=== PATIENT | female | born 1990 | race Caucasian/White ===

== ENCOUNTER 2021-05-30 08:15 | Outpatient (REF) | payer BC, SELFPAY ==
[2021-05-30 08:42] LABS: MANUAL DIFF FLAG NO
[2021-05-30 09:52] LABS: Basophils Absolute Auto 0.1 X10*3/uL (0.0-0.2); Basophils Percent Auto 0.8 % (0-2); Eosinophils Absolute Auto 0.4 X10*3/uL (0.0-0.4); Eosinophils Percent Auto 6.9 % (0-4); Hematocrit 37.4 % (37.0-47.0); Hemoglobin 12.3 g/dl (12.0-16.0); Imm Gran Abs Auto 0.02 X10*3/uL (0.00-0.03); Imm Gran Pct Auto 0.3 % (0.0-0.4); Lymphocytes Absolute Auto 2.9 X10*3/uL (1.2-4.9); Lymphocytes Percent Auto 45.8 % (20-40); Mean Corpuscular HGB Conc 32.9 g/dl (31.0-35.0); Mean Corpuscular Hemoglobin 28.9 pg (27.0-33.0); Monocytes Absolute Auto 0.4 X10*3/uL (0.1-1.2); Monocytes Percent Auto 5.6 % (2-11); Neutrophils Absolute Auto 2.6 x10*3/uL (2.0-8.3); Neutrophils Percent Auto 40.6 % (45-73); Platelet Count 284 X10*3/uL (160-400); Red Blood Count 4.25 X10*6/uL (4.20-5.50); Red Cell Distribution Width 12.6 % (11.0-16.0); White Blood Count 6.4 X10*3/uL (4.8-10.8)
[2021-05-30 10:15] LABS: Alanine Aminotransferase 13 U/L (0-31); Albumin Level 4.1 g/dL (3.5-5.0); Alkaline Phosphatase 48 U/L (39-117); Anion Gap 11 (12-20); Aspartate Amino Transferase 19 U/L (5-31); Bilirubin Total 0.4 mg/dL (0.0-1.0); Blood Urea Nitrogen 10 mg/dL (9-16); Calcium 9.3 mg/dL (8.4-10.2); Carbon Dioxide 27 mmol/L (22-29); Chloride 106 mmol/L (96-108); Cholesterol 181 mg/dL; Estimated Glomerular Filt Rate > 60; Glucose Fasting 82 mg/dL (60-99); HDL Cholesterol 66 mg/dL; LDL Cholesterol Calculated 104 mg/dl; Potassium 4.6 mmol/L (3.3-5.1); Sodium 139 mmol/L (135-145); Triglycerides 59 mg/dL
[2021-05-30 10:18] LABS: Estimated Average Glucose 100 mg/dL; Hemoglobin A1c % 5.1 %
[2021-05-30 10:42] LABS: TSH reflex Free T4 1.48 uIU/mL (0.32-4.0)
[2021-05-30 10:50] LABS: Folate 10.8 ng/mL (> or = 4.0); Vitamin B12 566 pg/mL (200-900)
[2021-06-01 01:31] LABS: Prolactin 6.9 ng/mL
[2021-06-04 12:12] LABS: Vitamin D 25-OH, D2 <4 ng/mL; Vitamin D 25-OH, D3 31 ng/mL; Vitamin D 25-OH, Total 31 ng/mL (30-100)
== END 2021-05-30 08:16 | disposition home or self-care (01) ==
LOC: HO.LAB 08:15
PROVIDERS: PCP Nurse Practitioner Acute Care; Visit Provider Nurse Practitioner Acute Care
DX: D49.7 Neoplasm of unspecified behavior of endocrine glands and other parts of nervous system (principal)
CPT/HCPCS: 36415; 80053; 80061; 82306; 82607; 82746; 83036; 84146; 84443; 85025

== ENCOUNTER 2021-06-06 14:27 | Outpatient (REF) | payer BC, SELFPAY ==
--- NOTE | ~2021-06-06 | XR_ITS ---
EXAMINATION: XR CHEST CLINICAL INFORMATION: Cough. COMPARISON: None TECHNIQUE: Frontal view of the chest was obtained. FINDINGS: No significant abnormality is noted involving the heart, lungs, mediastinum, bony thorax or soft tissues. XR/XR chest 1V IMPRESSION: Unremarkable chest examination.
== END 2021-06-06 14:28 | disposition home or self-care (01) ==
LOC: HO.XRAY 14:27
PROVIDERS: PCP Nurse Practitioner Acute Care; Visit Provider Nurse Practitioner Acute Care
DX: R05.8 Other specified cough (principal)
CPT/HCPCS: 71045

== ENCOUNTER 2021-08-14 08:27 | Outpatient (REF) | payer BC, SELFPAY ==
[2021-08-14 15:19] LABS: CT PCR NOT DETECTED (Not Detect.); NG PCR NOT DETECTED (Not Detect.)
[2021-08-15 11:12] LABS: BV Int Neg Control Negative (Negative); BV Int Pos Control Positive (Positive)
== END 2021-08-14 08:28 | disposition home or self-care (01) ==
LOC: HO.LAB 08:27
PROVIDERS: PCP Nurse Practitioner Acute Care; Visit Provider Advanced Practice Midwife
DX: Z01.411 Encounter for gynecological examination (general) (routine) with abnormal findings (principal); D35.2 Benign neoplasm of pituitary gland; Z20.2 Contact with and (suspected) exposure to infections with a predominantly sexual mode of transmission; Z78.9 Other specified health status
CPT/HCPCS: 87480; 87491; 87510; 87591; 87660; 88142

== ENCOUNTER 2022-09-12 09:10 | Outpatient (REF) | payer BC, SELFPAY ==
--- NOTE | ~2022-09-12 | MR_ITS ---
EXAMINATION: MR BRAIN WITH AND WITHOUT CONTRAST CLINICAL INFORMATION: Follow-up pituitary gland tumor COMPARISON: None. TECHNIQUE: MRI of the brain was obtained using routine sequences before and following administration of intravenous contrast. A total of 3 mL of Gadavist was administered intravenously. FINDINGS: Somewhat heterogeneous enhancement of the pituitary gland limits assessment, however there is asymmetric differential hypoenhancement within the far left lateral pituitary gland abutting the medial margin of left cavernous sinus best just appreciated on image 8, series 10 measuring 2.5 mm, which may reflect a small pituitary microadenoma and can be correlated with pituitary function tests and prior outside hospital imaging. The infundibulum inserts at the midline. There is no suprasellar extension or mass effect along the optic apparatus. Normal enhancement of the bilateral cavernous sinuses without evidence of cavernous sinus involvement. No acute infarct. No extra-axial fluid collection. The ventricles and sulci are normal in size and configuration without significant volume loss or hydrocephalus. No abnormal intraparenchymal or leptomeningeal enhancement. No significant mass effect or herniation pattern. The intracranial dural venous sinus and arterial flow voids are preserved. The orbits are grossly unremarkable. Extensive pansinus mucosal disease and completely opacified right maxillary sinus, opacification of the right greater than left ethmoid air cells and partially opacified left frontal sinus with aerated secretions, which can be correlated clinically for acute sinusitis. Proteinaceous retention cysts within the bilateral maxillary sinuses. 9 mm rounded enhancing lesion within the right parapharyngeal space (image 7, series 10). T2 hyperintensity overlying the nasal bridge to reflect cosmetic/surgical material. Normal marrow signal. MR/MR head/brain wo/w con IMPRESSION: 1. Somewhat heterogeneous enhancement of the pituitary gland however with a 2.5 mm focus of differential hypoenhancement in the far left lateral pituitary gland abutting the medial margin of the cavernous sinus may reflect a small pituitary microadenoma and can be correlated with pituitary function tests and prior outside hospital imaging. 2. Otherwise unremarkable contrast-enhanced MRI of the brain without abnormal intracranial enhancement. 3. 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 4. Extensive pansinus mucosal disease and completely opacified right maxillary sinus, opacification of the right greater than left ethmoid air cells and partially opacified left frontal sinus, which can be correlated clinically for acute sinusitis.
[2022-09-12 10:33] LABS: Syphilis Screen Nonreactive (Nonreactive)
[2022-09-12 10:35] LABS: Thyroid Stimulating Hormone 3.01 uIU/mL (0.32-4.0)
[2022-09-12 10:36] LABS: HIV AB/AG Nonreactive (Nonreactive)
[2022-09-13 10:18] LABS: Prolactin 14.6 ng/mL
== END 2022-09-12 09:11 | disposition home or self-care (01) ==
LOC: HO.LAB 09:10
PROVIDERS: PCP Internal Medicine; Visit Provider Internal Medicine
DX: D35.2 Benign neoplasm of pituitary gland (principal); Z11.4 Encounter for screening for human immunodeficiency virus [HIV]; J32.4 Chronic pansinusitis; Z20.2 Contact with and (suspected) exposure to infections with a predominantly sexual mode of transmission
CPT/HCPCS: 36415; 70553; 84146; 84443; 86780; 87389; A9585

== ENCOUNTER 2022-09-12 09:30 | Outpatient (REF) | payer BC, SELFPAY | END 2022-09-12 09:31 | disposition home or self-care (01) | LOC: HO.MRI 09:30 | PROVIDERS: PCP Internal Medicine; Visit Provider Internal Medicine | DX: Z13.89 Encounter for screening for other disorder (principal) ==

== ENCOUNTER → 2024-05-24 10:52 | Outpatient (BNVA) | payer BC, SELFPAY | PROVIDERS: PCP Internal Medicine; Visit Provider Internal Medicine | DX: Z00.00 Encounter for general adult medical examination without abnormal findings (principal); J45.30 Mild persistent asthma, uncomplicated; Z28.21 Immunization not carried out because of patient refusal | CPT/HCPCS: 90471; 96127 ==

== ENCOUNTER → 2024-05-24 11:28 | Outpatient (AMB) | payer BC, SELFPAY ==
--- NOTE | 2024-05-24 10:55 | MHC.PC.OV ---
Vital Signs 05/24/24 11:00 Height 5 ft 2 in Weight 115 lb BMI 21.0 BP 108/72 Blood Pressure Location Lt brachial Position Sitting Intake Visit Reasons: Annual Exam Intake Note: Patient here for an annual physical exam Client Application Support Engineer Required: No Accompanied by: Self / Same As Patient Allergies ibuprofen [From Advil] Allergy (Intermediate, Verified 05/24/24 11:17) Anaphylaxis, fever and cough Medication List - Last Reconciled 05/24/24 by Megan Knight MD No Known Home Meds Tobacco use date assessed: 05/24/24 Dental Screening Dental Screen Date: 05/24/24 Did you have a dental visit in the last 12 months?: Yes Did you have a dental problem in the last 6 months where you did not have access to dental care?: No Was dental information given to patient?: Patient has dentist HPI HPI Comments History of Present Illness Details The patient is a 33-year-old female presenting for a routine physical examination. She has a history of anaphylactic reactions to ibuprofen, suspect for fever and cough management, necessitating avoidance of this medication. The patient has asthma and requests a refill for her albuterol inhaler, which she has not needed for several months. She experienced some pressure sensations in her neck over a few weeks, which might be associated with stress or muscle strain from or carrying her child. She will complete soon and plans to follow up with endocrinology after. Her recent physical activities have been limited due to caring for her infant, particularly post- delivery, which is her only surgery to date. The patient sees an silverware buffer but will not have any follow-up until is concluded. - Tdap vaccinated in 2023; next due in 2033. - Pap smear performed in 2021, with normal results; next screening in three years. - Recommends dynamic adjustment post cessation of with subsequent endocrinal evaluation. [facility] Medical History (Updated 05/24/24 @ 11:28 by Megan Knight MD) Environmental and seasonal allergies Pituitary adenoma Uses control Asthma Surgical History (Updated 05/24/24 @ 11:22 by Megan Knight MD) H/O section Family History Mother Diabetes Maternal Grandmother Breast cancer Father No problems noted. Social History Housing: Condominium Alcohol intake: current Alcohol intake frequency: a few times a month Alcohol type: wine Patient Tobacco Use Status: Never used Tobacco e-Cigarette/Vaping Use: Never Used Second Hand Smoke Exposure: No service: No Current occupational status: employed Current occupation: Finance Current occupational exposures/hazards: No Cognitive needs: No Hearing needs: No Vision needs: Yes (glasses) Questionnaire PHQ-9 Over the last 2 weeks, how often have you been bothered by any of the following problems? 1. Little interest or pleasure in doing things: not at all 2. Feeling down, depressed, or hopeless: not at all 3. Trouble falling or staying asleep, or sleeping too much: not at all 4. Feeling tired or having little energy: not at all 5. Poor appetite or overeating: not at all 6. Feeling bad about yourself - or that you are a failure or have let yourself or your family down: not at all 7. Trouble concentrating on things, such as reading the newspaper or watching television: not at all 8. Moving or speaking so slowly that other people could have noticed. Or the opposite - being so fidgety or restless that you have been moving around a lot more than usual: not at all 9. Thoughts that you would be better off or of hurting yourself in some way: not at all Total score: 0 Depression Screening Interpretation: Negative Depression Screening Done: Yes 22349 - PHQ-9 Billing: Yes Source: Developed by Drs. Milan Melvin, Vicki Baca, Christiano Rey and colleagues, with an educational jim from [employer]. Thrive Questionnaire Date Thrive assessed: 05/24/24 I am a: Patient What is your living situation today?: I have a steady place to live Within the past 12 months, did the food you bought not last and you didn't have the money to get more?: Never true Within the past 12 months, did you worry whether your food would run out before you got money to buy more?: Never true Do you have trouble paying for medicines?: No Do you have trouble getting transportation to medical appointments?: No Do you have trouble paying your heating and electricity bill?: No Do you have trouble taking care of your child, family member or friend?: No Do you have trouble with day-to-day activities such as bathing, preparing meals, shopping, managing finances, etc.?: No Are you currently unemployed and looking for a job?: No Are you interested in more education?: No Please select the resources that you would like help with: None Currently or been in a relationship where the following occur: No concerns reported THRIVE Score: 0 AUDIT C Alcohol Use Questionnaire (AUDIT-C) 1. How often do you have a drink containing alcohol?: Monthly or less 2. How many drinks containing alcohol do you have on a typical day when you are drinking?: 1 or 2 3. How often do you have six or more drinks on one occasion?: Never Total Score: 1 Score Reviewed/Action Taken: No PILAR-7 AMB Questionnaire PILAR-7 Date PILAR - 7 assessed: 05/24/24 Feeling nervous, anxious, or on edge: 1 = Several days Not being able to stop or control worryin = Not at all Worrying too much about different things: 0 = Not at all Trouble relaxin = Several days Being so restless that it is hard to sit still: 1 = Several days Becoming easily annoyed or irritable: 1 = Several days Feeling afraid as if something awful might happen: 0 = Not at all Total PILAR-7 score (0-4 normal; 5-9 mild; 10-14 moderate; 15-21 severe): 4 Source: Developed by Drs. Milan Melvin, Vicki Baca, Christiano Rey and colleagues, with an educational jim from [employer]. PILAR-7 Assessment Billing PILAR-7 Assessment Tool: PILAR-7 Assessment 02467 Review of Systems Const All systems reviewed & are unremarkable except as noted in HPI and below Card Denies chest pain at rest, Denies chest pain with activity, Denies edema, Denies irregular heart rhythm, Denies claudication, Denies dyspnea, Denies dyspnea on exertion, Denies orthopnea, Denies paroxysmal nocturnal dyspnea and Denies slow heart rate Resp Denies cough, Denies dyspnea and Denies dyspnea on exertion GI Denies abdominal pain, Denies change in bowel habits, Denies excessive flatus, Denies nausea and Denies vomiting Denies urinary incontinence, Denies urinary hesitancy and Denies urinary urgency Musc Denies abnormal gait, Denies atrophy, Denies deformity and Denies limited range of motion Skin/Breast Denies bleeding lesions, Denies changing lesions and Denies rash Neuro Denies abnormal gait, Denies behavioral changes and Denies lack of coordination Psych Denies behavioral changes Physical exam (Primary Care) Vital Signs: Last Vital Signs BP 108/72 05/24/24 11:00 BMI result Body Mass Index 21.0 Tobacco/Smoking Status: Tobacco use Status Tobacco use date assessed 05/24/24 05/24/24 10:59 Patient Tobacco Use Status Never used Tobacco 05/24/24 10:59 e-Cigarette/Vaping Use Never Used 05/24/24 10:59 PHQ-9: PHQ-9 Score PHQ-9: Total score 0 05/24/24 12:17 Depression Screening Interpretation: Negative Thrive Assessment: Date of Thrive Assessment Date Thrive assessed 05/24/24 05/24/24 10:59 Currently or been in a relationship where the following occur: No concerns reported HENAZ Head: Yes normal to inspection, Yes normocephalic and Yes atraumatic Ears: external ears normal Eyes General: appearance normal, both eyes and all related structures Eyelids: Yes eyelids normal Conjunctivae: conjunctivae normal Neck Neck: Yes normal visual inspection and Yes supple Resp Effort & Inspection: normal respiratory effort Auscultation: clear to auscultation bilaterally Cardio Jugular venous distension: no JVD Rate: regular rate Rhythm: regular rhythm Heart sounds: S1 normal heart sound present and S2 normal heart sound present GI Inspection: Yes normal to inspection Palpation (GI): Soft to palpation and nontender Auscultation: normal bowel sounds Skin General skin exam: no rashes or lesions noted Neuro General: no focal motor deficits Extrem General: Yes full ROM Psych Appearance: grossly normal Office Procedures Flu Questionnaire Does the patient have a severe egg allergy?: No Immunizations Fluarix Triv [id number] (PF) 45 mcg (15 mcg x 3)/0.5 mL IM syringe Performing Provider: Megan Knight MD [facility] Documented (not given) by: YECENIA Hairston on 05/24/24 12:17 Reason Not Given: Patient Refused Coding Level of Care Code Est Pt Prev Care 18-39y(40822) Diagnoses Annual physical exam Z00.00 Additional Codes PILAR-7 Assessment Billing - PILAR-7 Assessment Tool: PILAR-7 Assessment 87825 ([id number]) PHQ-9 - 87374 - PHQ-9 Billing: Yes ([id number]) Time Spent (min) 31 Assessment & Plan Assessment & Plan (1) Annual physical exam: Code(s): Z00.00 - Encounter for general adult medical examination without abnormal findings Category: Medical Plan - Continuation of avoidance strategy for ibuprofen. - Refill albuterol inhaler for anticipated asthma exacerbations. - Follow-up for neck discomfort should it persist or worsen. - Schedule future endocrinology consultation post- for relevant evaluations. Patient was informed and verbally consented to the use of an ambient scribe for clinic note documentation during this visit. I informed the patient regarding her medication allergies and the importance of avoiding ibuprofen. We discussed the management of her asthma and provided a refill for her albuterol inhaler for precautionary use. We agreed to monitor her neck discomfort and consider further assessment if it does not resolve. The patient plans to complete soon, and we discussed the appropriateness of seeing her silverware buffer at that time. Annual health maintenance measures, including vaccinations and screenings, were updated with expectations set for next intervals. We also addressed lifestyle impacts related to caregiving and nursing, suggesting stress management and physical adjustments as needed. Orders: Orders Influenza [id number] Immunization Today Z23 - Encounter for immunization Medications: New albuterol sulfate 90 mcg/actuation (Ventolin HFA) 2 puffs inhalation Q6H PRN 8.5 grams 0RF shortness of breath or wheezing 30 days J45.30 - Mild persistent asthma, uncomplicated Patient Instructions: - Avoid ibuprofen due to anaphylaxis risk. - Use the albuterol inhaler as needed. - Monitor neck discomfort; seek follow-up if it persists. - Plan a follow-up with endocrinology post-. - Await annual recommendations for next Tdap and Pap smear. - Consider stress management techniques.
[2024-05-24 11:00] VITALS: BP 108/72; BMI 21.0
== END | disposition home or self-care (01) ==
PROVIDERS: PCP Internal Medicine; Visit Provider Internal Medicine
DX: Z23 Encounter for immunization (principal); Z00.00 Encounter for general adult medical examination without abnormal findings